=== PATIENT | female | born 1985 | race Caucasian/White ===

== ENCOUNTER 2016-05-16 17:49 | Inpatient (IN) | payer BC ==
[2016-05-16] MEDS: LACTATED RINGER'S 1000 ML INJ 1,000 ML IV SCH (12:00)
[~2016-05-16 17:49] MED LIST: DOCU1CAP39 PO; IBUP800 PO
[2016-05-16] MEDS ORDERED: LACTATED RINGER'S 1000 ML BOLUS IV PRN (19:00)
[2016-05-16] MEDS ORDERED: ONDANSETRON HCL 4 MG/2 ML VIAL IV PRN (19:00)
[2016-05-16] MEDS ORDERED: MINERAL OIL 10 ML VIAL TOP PRN (19:00)
[2016-05-16] MEDS ORDERED: ZOLPIDEM TARTRATE 10 MG TAB PO PRN (19:00)
[2016-05-16] MEDS ORDERED: NS 500 ML BOLUS IV PRN (19:00)
[2016-05-16] MEDS ORDERED: DINOPROSTONE 10 MG INSERT-LEAVE FOR 12 HOURS VAGINAL ONE (19:00)
[2016-05-16] MEDS ORDERED: NS 1000 ML XX PRN (19:00)
[2016-05-16] MEDS ORDERED: LIDOCAINE HCL 1% 50 ML VIAL INFIL PRN (19:00)
[2016-05-16] MEDS ORDERED: OXYTOCIN 30 UNITS 500ML PREMIX IV ONE (19:00)
[2016-05-16] MEDS ORDERED: NS 1000 ML IV PRN (19:00)
[2016-05-16] MEDS ORDERED: CITRIC ACID-SODIUM CITRATE LIQ 30 ML UDC PO SCH (19:00)
[2016-05-16] MEDS ORDERED: LIDOCAINE HCL 1% 50 ML VIAL I-DERMAL PRN (19:00)
[2016-05-16 19:09] LABS: BLOOD, URINE NEG (NEG); GLUCOSE,URINE NEG (NEG); KETONE, URINE 40 mg/dL (NEG); MUCUS URINE FEW /lpf (OCC); NITRITE,URINE NEG (NEG); SQUAMOUS EPITHELIAL CELL URINE 6 /hpf (0-5); URINE COLOR YELLOW (YELLW/STRAW)
[2016-05-16 19:11] LABS: COMMENT (UR) CULT NOT INDICATED; CULTURE IF INDICATED CULT NOT INDICATED
[2016-05-16 19:11] LABS: BASOPHIL % 0.2 % (0.0-2.0); EOSINOPHIL % 0.3 % (0.0-4.0); HEMATOCRIT 40.7 % (35.0-46.0); HEMO FLAGS DIFF FINAL; LYMPH % 11.7 % (9.0-44.0); LYMPHOCYTE # 1.6 TH/MM3 (1.0-4.8); MEAN CELL VOLUME 85.6 FL (80.0-100.0); MEAN CORPUSCULAR HEMOGLOBIN 28.3 PG (27.0-34.0); MEAN CORPUSCULAR HGB CONC 33.1 % (32.0-36.0); MONO % 5.2 % (0.0-8.0); NEUT % 82.6 % (16.0-70.0); PLATELET COUNT 172 TH/MM3 (150-450); RED BLOOD COUNT 4.75 MIL/MM3 (4.00-5.30); RED CELL DISTRIBUTION WIDTH 14.1 % (11.6-17.2); WHITE BLOOD COUNT 13.3 TH/MM3 (4.0-11.0)
[2016-05-16 19:27] VITALS: BP 114/60; PULSE 51
[2016-05-16 19:30] VITALS: RESP 18
[2016-05-16] MEDS ORDERED: ZOLO50TA PO (20:06)
[2016-05-16] MEDS ORDERED: PREN29TA PO (20:06)
[2016-05-16] MEDS: LACTATED RINGER'S 1000 ML IV SCH (21:24)
[2016-05-16 21:30] VITALS: RESP 18
[2016-05-17] MEDS ORDERED: OXYTOCIN 30 UNITS/NS 500ML PREMIX IV SCH (06:00)
[2016-05-17 06:35] VITALS: BP 107/50; PULSE 53
--- NOTE | 2016-05-17 11:03 | MH ---
cc: RIGOist DATE OF ADMISSION: 05/16/2016 ADMITTING DIAGNOSIS at 41 weeks, gestational diabetes. HISTORY OF PRESENT ILLNESS The patient is a 30-year-old white female, para 1-0-0-1. LMP is 08/04/2015, EDC 05/10/2016. She had an elevated one-hour glucose screen, has followed a diabetic control diet with good control. Her course has been benign. She had become post dates and admitted last evening for Cervidil ripening and Pitocin induction today. PAST MEDICAL HISTORY PREVIOUS SURGERY Appendectomy age 13. SERIOUS MEDICAL ILLNESSES 1. IBS. 2. History of depression since June 2014. SOCIAL HISTORY She is . She works in [employer], former [employer]. Alcohol, tobacco and drugs are none. PHYSICAL EXAMINATION GENERAL: A well-nourished well-developed white female. VITAL SIGNS: Stable. HEENT: Exam is normal. CHEST: Clear. HEART: Regular rate. BREASTS: Symmetrical. ABDOMEN: Benign. Gravid. EFW 4000 grams. PELVIC: Cervix is now 1-2, 60%, vertex, -1, intact. ASSESSMENT As above. PLAN Continue Pitocin induction. Discussed possible need for if failure to progress or distress. MD BLANCHE Farah/JAYDEN /8:28 AM /10:58 AM MTDD
[2016-05-17] MEDS ORDERED: fentaNYL 2MCG-BUPIV 0.125% INJ 100 ML ONE (13:22)
[2016-05-17] MEDS ORDERED: ePHEDrine/NS 50 MG/5 ML SYR ONE (13:33)
[2016-05-17] MEDS ORDERED: fentaNYL 2MCG-BUPIV 0.125% INJ 100 ML EPIDURAL SCH (14:30)
[2016-05-17] MEDS ORDERED: ePHEDrine/NS 50 MG/5 ML SYR IV PRN (14:30)
[2016-05-17] MEDS ORDERED: DO NOT ADMINISTER ANTICOAGULANTS XX PRN (14:30)
[2016-05-17] MEDS ORDERED: NO SYSTEM NARCOTICS XX PRN (14:30)
[2016-05-17] MEDS ORDERED: WITCH HAZEL 50%/GLYCERIN 12.5% 40 PAD JAR TOPICAL PRN (15:15)
[2016-05-17] MEDS ORDERED: ALUMINUM/MAGNESIUM/SIMETH 30 ML CUP PO PRN (15:15)
[2016-05-17] MEDS ORDERED: SODIUM CHLORIDE 0.9% FLUSH 5 ML FLUSH IV PRN (15:15)
[2016-05-17] MEDS ORDERED: ACETAMINOPHEN 325 MG TAB PO PRN (15:15)
[2016-05-17] MEDS ORDERED: ONDANSETRON ODT 4 MG TAB PO PRN (15:15)
[2016-05-17] MEDS ORDERED: ZOLPIDEM TARTRATE 5 MG TAB PO PRN (15:15)
[2016-05-17] MEDS ORDERED: oxyCODONE/ACETAMINOPHEN 5 MG/325 MG TAB PO PRN ×2 (15:15)
[2016-05-17] MEDS ORDERED: BENZOCAINE 20% TOPICAL SPRAY 60 ML CAN TOPICAL PRN (15:15)
[2016-05-17] MEDS ORDERED: DIPHTH/TETANUS/ACEL PERTUSSIS (BOOSTER) 0.5 ML VIAL/PFS IM ONE (16:00)
[2016-05-17] MEDS ORDERED: MEASLES, MUMPS, RUBELLA VACCINE 0.5 ML VIAL SQ ONE (16:00)
[2016-05-17] MEDS: IBUPROFEN 600 MG TAB PO PRN (20:58)
[2016-05-17] MEDS ORDERED: SODIUM CHLORIDE 0.9% FLUSH 5 ML FLUSH IV SCH (21:00)
[2016-05-18] MEDS: IBUPROFEN 600 MG TAB PO PRN ×3 (02:40→19:38)
[2016-05-18 06:03] LABS: BASOPHIL % 0.3 % (0.0-2.0); EOSINOPHIL # 0.1 TH/MM3 (0-0.4); EOSINOPHIL % 0.5 % (0.0-4.0); HEMATOCRIT 35.8 % (35.0-46.0); HEMO FLAGS DIFF FINAL; LYMPH % 14.4 % (9.0-44.0); MEAN CELL VOLUME 85.7 FL (80.0-100.0); MEAN CORPUSCULAR HEMOGLOBIN 29.5 PG (27.0-34.0); MEAN CORPUSCULAR HGB CONC 34.4 % (32.0-36.0); MONO % 6.7 % (0.0-8.0); NEUT % 78.1 % (16.0-70.0); PLATELET COUNT 147 TH/MM3 (150-450); RED BLOOD COUNT 4.18 MIL/MM3 (4.00-5.30); RED CELL DISTRIBUTION WIDTH 14.3 % (11.6-17.2); WHITE BLOOD COUNT 14.1 TH/MM3 (4.0-11.0)
--- NOTE | 2016-05-18 07:59 | HHI.DCPOC ---
Discharge Care Plan Report Symptoms to Your Doctor -Temperate above 100.5 degrees -Redness, of incision or excessive or foul smelling drainage -Unusual pain or calf pain -Increased vaginal bleeding -Painful or difficulty urinating -Feelings of extreme sadness or anxiety after 2 weeks Goals to Promote Your Health * To prevent worsening of your condition and complications * To maintain your health at the optimal level Directions to Meet Your Goals Take your medications as prescribed Follow your dietary instruction Follow activity as directed Ensure plenty of rest for recovery Drink fluids for hydration Keep your appointments as scheduled Take your immunizations and boosters as scheduled If your symptoms worsen call your PCP, if no PCP go to Urgent Care Center or Emergency Room Smoking is Dangerous to Your Health. Avoid second hand smoke Call the 24-hour crisis hotline for domestic abuse at Vidal Angulo MD May 18, 2016 07:59
[2016-05-18] MEDS: LACTATED RINGER'S 1000 ML IV SCH (11:00)
[2016-05-18] MEDS: LACTATED RINGER'S 1000 ML INJ 1,000 ML IV SCH (11:00)
[2016-05-18] MEDS: DOCUSATE SODIUM 50 MG/SENNA 8.6 MG TAB PO PRN (19:38)
[2016-05-18 20:38] VITALS: RESP 18
[2016-05-19] MEDS: DOCUSATE SODIUM 50 MG/SENNA 8.6 MG TAB PO PRN (09:06)
[2016-05-19] MEDS: IBUPROFEN 600 MG TAB PO PRN (09:06)
--- NOTE | 2016-05-25 22:33 | MD ---
cc: SHAILESH OMALLEY M.D. ADMISSION DATE: 05/16/2016 DISCHARGE DATE: 05/19/2016 ADMISSION DIAGNOSES 1. 41 weeks. 2. Gestational diabetes. DISCHARGE DIAGNOSES 1. 41 weeks. 2. Gestational diabetes. 3. Delivered. HISTORY OF PRESENT ILLNESS The patient is 30-year-old white female para 1-0-0-1, LMP of 08/04/2015, EDC of 05/10/2016. Her course was benign. She had an elevated glucose screen and successfully followed a diabetic diet in the third trimester. She became postdates, was admitted for Cervidil induction on the night of 05/16/2016 and switched to Pitocin the next day. Received epidural anesthesia and progressed to a spontaneous vaginal delivery over an intact perineum with meconium-stained fluid. A viable vigorous female. Apgars 5, 7 and 7, weight 8 pounds 15 ounces. Apgars were depressed due to the suctioning of the meconium fluid. did well, discharged home in excellent condition on 05/18/2016. Advised NPV, light activity. Return to see me in 6 weeks. She is to call for abnormal pain, bleeding, temperature, signs infection or depression. She will take her preop vitamins and her Zoloft daily. The baby is named [place] and she was breast feeding. Strep culture was negative. MD BLANCHE Farah/KK /8:07 AM /10:25 PM [id number]
== END 2016-05-19 13:05 | disposition home or self-care (01) | DRG 775 ==
LOC: H2EB 17:49 → H1EA 05-17 17:46
PROVIDERS: ADMIT Obstetrics & Gynecology; ATTEND Obstetrics & Gynecology
PROC: 10E0XZZ Delivery of Products of Conception, External Approach (ICD-10-PCS; principal; 2016-05-17)
PROC: 3E033VJ Introduction of Other Hormone into Peripheral Vein, Percutaneous Approach (ICD-10-PCS; 2016-05-17)
PROC: 10907ZC Drainage of Amniotic Fluid, Therapeutic from Products of Conception, Via Natural or Artificial Opening (ICD-10-PCS; 2016-05-17)
PROC: 0HQ9XZZ Repair Perineum Skin, External Approach (ICD-10-PCS; 2016-05-17)
DX: O48.0 Post-term pregnancy (principal); O70.0 First degree perineal laceration during delivery; Z37.0 Single live birth; Z3A.41 41 weeks gestation of pregnancy; O24.429 Gestational diabetes mellitus in childbirth, unspecified control
CPT/HCPCS: 59025; 81001; 85025; 86900; 86901; J2590; J7120